=== PATIENT | male | born 1980 | race American Indian/Alaskan Native ===

== ENCOUNTER 2018-05-25 12:56 | Emergency (ER) | payer SELFPAY ==
[2018-05-25 13:02] VITALS: BP 161/103
== END 2018-05-25 14:46 | disposition left against medical advice (07) ==
LOC: ED 12:56
DX: M54.2 Cervicalgia (principal); M54.5 Low back pain; Z53.21 Procedure and treatment not carried out due to patient leaving prior to being seen by health care provider